=== PATIENT | male | born 1975 | race Caucasian/White ===

== ENCOUNTER 2016-04-24 18:56 | Emergency (ER) | payer MEDICARE, MEDICAID ==
[~2016-04-24 18:56] MED LIST: ACETAMINOPHEN-H1 TA3 PO; ADVAIR 100/28 DISKU1 IH; AMITRIPTYLINE H25 M2; AMITRIPTYLINE50 MG PO; AZATHIOPRINE50 MG PO; BALSALAZIDE DI750 MG PO; CEPHALEXIN500 M1 PO; CODEINE/GUAIFE120 M2 PO; DEPAKENE250 MG; DEPAKENE250 MG PO; FLUOXETINE40 MG PO; HUMIRA40 MG/0.1 SC; IBU800 M1 PO; LISINOPRIL10 MG PO; LORTAB 7.5/5001 TAB PO; NEURONTIN300 M1 PO; NORCO 325 MG-7.1 TA1 PO; PRILOSEC 20MG20 MG PO; QUETIAPINE FUMA25 M1 PO; RANITIDINE300 MG PO; ZITHROMAX 250M250 MG PO
[2016-04-24] MEDS ORDERED: LOPRESSOR 225 MG/TAB PO (21:47)
[2016-04-24] MEDS ORDERED: MECLIZINE PO (21:47)
== END 2016-04-24 22:06 | disposition home or self-care (01) ==
LOC: ED 18:56
DX: I10 Essential (primary) hypertension (principal); R42 Dizziness and giddiness; R51 Headache
CPT/HCPCS: J1200; J1885; J2405; J7030